=== PATIENT | female | born 1995 | race African-American/Black ===

== ENCOUNTER 2017-08-20 22:33 | Emergency (ER) | payer OTHER ==
[2017-08-20] MEDS ORDERED: Acetaminophen 500 MG TAB ONE (22:58)
[2017-08-20 23:11] LABS: Bilirubin Negative (Negative); Blood, Urine Negative (Negative); Glucose, Urine (Dipstick) Negative (Negative); Ketone, Urine Negative (Negative); Nitrite Negative (Negative); Protein, Urine (Dipstick) Negative (Neg-Trace)
[2017-08-20 23:14] LABS: Bacteria/HPF 1+ HPF (None Seen); Hyaline Casts/LPF 0-3 HYALINE CAST LPF (0-3 Hyaline); RBC/HPF 0-3 HPF (0-3)
[2017-08-21] MEDS ORDERED: Acetaminophen 500 MG TAB ONE (00:10)
== END 2017-08-21 00:32 | disposition home or self-care (01) ==
LOC: ERS 22:33
DX: O99.512 Diseases of the respiratory system complicating pregnancy, second trimester (principal); J11.1 Influenza due to unidentified influenza virus with other respiratory manifestations; O23.42 Unspecified infection of urinary tract in pregnancy, second trimester; O99.332 Smoking (tobacco) complicating pregnancy, second trimester; F17.210 Nicotine dependence, cigarettes, uncomplicated; Z3A.17 17 weeks gestation of pregnancy
CPT/HCPCS: 81003; 81015; 87077; 87081; 87086; 87186; 87430; 99283

== ENCOUNTER 2017-10-04 12:52 | Outpatient (CLI) | payer OTHER ==
--- NOTE | 2017-10-04 14:09 | ULT ---
OB ULTRASOUND: Date: 10/04/17 HISTORY: Size and dates. FINDINGS: A single live intrauterine gestation is seen with measurements corresponding to an estimated gestatio nal age of 23 weeks/3 days and CUAUHTEMOC at 01/28/18. The estimated weight measures 568 gm (1 lb, 4 o z). measurements are as follows: BPD: 5.84 cm, 23 weeks/ days HC: 21.62 cm, 23 weeks/5 days AC: 17.55 cm, 22 weeks/3 days FL: 4.23 cm, 23 weeks/6 days heart rate measures 160 beats/minute. YESSI measures 12.8 cm. Placenta is anteriorly located with out evidence of placenta previa. presentation is breech. A three vessel cord, cord insertion, kidneys, bladder, stomach, four chamber heart, lateral pennie tricle, cerebellum, spine, lips/nose, and upper/lower extremities are visualized. No definite a nomalies are seen. IMPRESSION: Single live intrauterine of 23 weeks/3 days estimated gestational age and CUAUHTEMOC at 01/28/18. POS: [facility]
== END 2017-10-04 12:53 | disposition home or self-care (01) ==
LOC: ULT 12:52
PROVIDERS: ATTEND Family Medicine
DX: Z34.92 Encounter for supervision of normal pregnancy, unspecified, second trimester (principal); Z3A.23 23 weeks gestation of pregnancy
CPT/HCPCS: 76805

== ENCOUNTER 2017-10-25 12:32 | Outpatient (CLI) | payer OTHER ==
--- NOTE | 2017-10-25 15:07 | ULT ---
OB ULTRASOUND: INDICATION: False labor before 37 weeks. FINDINGS: There is a live intrauterine gestation in a vertex lie with cardiac activity documented at 144 b.p.m. Dedicated anatomic survey not performed. The placenta is seen in an anterior location. The amniotic fluid volume is subjectively normal. YESSI is measured at 16.4 cm. On the basis of son ographic imaging, estimated gestational age by ultrasound is 27 weeks 3 days. Estimated date of deli very by ultrasound at 01/21/18. Estimated weight is 1018 grams, placing the fetus at the 95th p ercentile by Hadlock criteria. Demonstrated cervical length is slightly greater than 4 cm. Biparietal diameter measures 6.7 cm, correlating to 27 weeks 0 days. Head circumference 26 cm, correlating to 28 weeks 2 days. Abdominal circumference 22.3 cm, correlating to 26 weeks and 6 days. Femoral length 5 cm, correlating to 27 weeks 0 days. IMPRESSION: 1. Single live intrauterine gestation as detailed above. 2. As clinically indicated, continued imaging followup may be obtained. POS: [facility]
== END 2017-10-25 12:33 | disposition home or self-care (01) ==
LOC: ULT 12:32
PROVIDERS: ATTEND Family Medicine
DX: Z34.02 Encounter for supervision of normal first pregnancy, second trimester (principal); Z3A.27 27 weeks gestation of pregnancy
CPT/HCPCS: 76816

== ENCOUNTER 2017-11-02 05:16 | Day surgery (SDC) | payer OTHER ==
[2017-11-02 05:54] VITALS: BMI 27.6
[2017-11-02 07:16] LABS: FFN Internal QC Analyzer PASS (PASS); FFN Internal QC Cassette PASS (PASS); Fetal Fibronectin POSITIVE (Negative)
[2017-11-02 07:18] LABS: Bilirubin Negative (Negative); Blood, Urine Negative (Negative); Clarity CLOUDY (Clear); Glucose, Urine (Dipstick) Negative (Negative); Leukocyte Moderate (Negative); Nitrite Negative (Negative); Protein, Urine (Dipstick) Negative (Neg-Trace); Specific Gravity, Urine 1.022 (1.002-1.036); Urobilinogen 0.2 mg/dL (0.2-1.0)
[2017-11-02 07:21] LABS: Bacteria/HPF Rare-Few HPF (None Seen); Hyaline Casts/LPF 0-3 HYALINE CAST LPF (0-3 Hyaline); Pathc Cast-AUWi Flag 0.13 (0-2.49)
[2017-11-02 07:39] LABS: RBC/HPF 0-3 HPF (0-3); Renal Epithelial None Seen HPF (0-3); Transitional Epithelial 0-3 HPF (0-3)
[2017-11-02] MEDS ORDERED: Betamet Acet/Betamet Na Ph 30 MG/5 ML VIAL ONE (08:28)
[2017-11-02] MEDS ORDERED: Betamet Acet/Betamet Na Ph 30 MG/5 ML VIAL IM SCH (09:00)
--- NOTE | 2017-11-02 09:05 | PRG ---
DATE OF SERVICE: 11/02/2017 PRIMARY FOOD STYLIST: Dr. Sylvia Bang. CHIEF COMPLAINT: Abdominal pains. HISTORY OF PRESENT ILLNESS: The patient is a 22-year-old female with an intrauterine at 28 weeks and 5 days who is presenting with abdominal pains that have become more severe than what she has been feeling. The patient has a history of three deliveries at 34 and 35 weeks gest [facility], [place]. Her most recent delivery was at 37 weeks gestation. The patient reports that she has been moon ving uterine contractions for the last several weeks and is not new. However, she was woken up this morning by contractions that have made it difficult for her to go back to sleep, so came for evaluati on. The patient has been taking Procardia at home and is on an antibiotic for a UTI. She denies any change in her discharge or vaginal bleeding or urinary urgency or frequency. She denies any recent illness, fever, or fall. She denies intercourse. PAST MEDICAL HISTORY: Negative. PAST SURGICAL HISTORY: Negative. OBSTETRIC HISTORY: She has had deliveries at 35, 34, 34 and 37 weeks gestation. SOCIAL HISTORY: Denies drug, alcohol or tobacco use. ALLERGIES: No known drug allergies. MEDICATIONS: vitamins and she believes she is on Macrobid and then she is on the nifedipine , she reports once daily. OBSTETRIC LABORATORY DATA: Unavailable at this time. REVIEW OF SYSTEMS: The patient reports that she has migraines on occasion. Denies fever, fall, ches t pain, shortness of breath, nausea, vomiting, diarrhea, constipation. She denies any rashes. Repor ts some hip soreness and reports some lower back pain with the contractions. PHYSICAL EXAMINATION: VITAL SIGNS: Blood pressure 124/73, heart rate of 86, respiratory rate of 16, satting 99% on room ai r, temperature is 98.6. GENERAL: She appears to be in no acute distress. She is alert and oriented, cooperative and pleasan t to interact with. HEENT: Head is normocephalic, atraumatic. LUNGS: Clear to auscultation bilaterally. HEART: Regular rate and rhythm. ABDOMEN: Soft. EXTREMITIES: Nontender, nonedematous. GENITOURINARY: She has no lesions on vulva or labia. Her vagina is moist with a green discharge cristina t is more copious than expected. Cervix is bulbous and fragile or friable, but appears to be visuall y closed. GC chlamydia. GBS and LAMP ASSEMBLER-3 were all collected and fibronectin. Cervix is long and fingertip with no presenting part palpable. heart tracing performed for abdominal pains. Baseline is noted to be in the 140s with moderate long-term variability, appropriate for 28-week gestation. She does have contractions on the monitor , appear to be every 3-4 minutes with irritability in between. Patient reports since her stay the on ly one contraction is felt stronger than what her usual baseline is. LABORATORY STUDIES: Urine is noted to be negative for protein, negative for ketones, negative for ni trites, moderate leukocyte esterase with 4-6 white blood cells, and 4-6 squamous cells and rare to fe w bacteria seen. Fibronectin is positive. LAMP ASSEMBLER-3 is pending. GC and chlamydia are pending. GB S is pending. ASSESSMENT AND PLAN: The patient is a 22-year-old female with an intrauterine at 28 weeks and 5 days who has a history of deliveries and is not on progesterone at this time due to ins urance complications and primary project landscape architect is working on trying to remedy that. She is on Procard ia for maternal comfort and is on antibiotic right now for urinary tract infection. Patient does hav e more discharge than expected and were pending a LAMP ASSEMBLER-3, gonorrhea and chlamydia. The LAMP ASSEMBLER-3 should be back later this morning. GC chlamydia should be back in a couple of days. We will need to be follow ed up with her primary OB. The Fibronectin is positive, though not very helpful in directing m anagement at this time. The cervix is long and fingertip and believing that steroids at this point a re not indicated. We will plan on rechecking her cervix in a few hours. Once the LAMP ASSEMBLER-3 is back, anti cipate discharge home with antibiotics as indicated and instructions to follow up in a couple of days with her primary OB, Dr. Sylvia Bang.
[2017-11-02 09:32] LABS: Amphetamine Not Detected (NotDetected); Barbiturates Screen Not Detected (NotDetected); Benzodiazepine Screen Not Detected (NotDetected); Cocaine Metabolite Screen Not Detected (NotDetected); Medtox Control Line Valid? VALID (VALID); Medtox Reader # READER 1; Methadone Not Detected (NotDetected); Methamphetamine Not Detected (NotDetected); Opiate Screen Not Detected (NotDetected); Oxycodone Screen Not Detected (NotDetected); Phencyclidine (PCP) Not Detected (NotDetected); THC/Cannabinoid Screen Not Detected (NotDetected); Tricyclic Screen Not Detected (NotDetected)
--- NOTE | 2017-11-02 11:07 | ULT ---
LIMITED OB ULTRASOUND: Date: 11/02/17 PROVIDED CLINICAL HISTORY: History of pre-term delivery. COMPARISON: 10/25/17. FINDINGS: Single live intrauterine gestation is documented in breech presentation. Placenta is anteriorly locat ed without evidence for previa. Heart rate of 137 beats/minute is documented. Cervical length measure s approximately 3.4 cm. There is no evidence for placenta previa. Amniotic fluid index is approximate ly 10.8. Estimated gestational age based on today's examination is 28 weeks/5 days, which correlates well with the prior examination. Estimated weight is 1367 gm, +/- 202 gm. anatomic survey not performed. Biometry: BPD: 7.03 cm, 28 weeks/2 days HC: 26.18 cm, 28 weeks/3 days FL: 5.59 cm, 29 weeks/3 days AC: 25.32 cm, 29 weeks/4 days IMPRESSION: Single live intrauterine gestation as described above. POS: [facility]
--- NOTE | 2017-11-02 13:37 | PRG ---
DATE OF SERVICE: 11/02/2017 PRESENTING COMPLAINT: Contractions. HISTORY OF PRESENT ILLNESS: Ms. Puga is a 22-year-old 5, para 4, x4 who is well known t o the Labor and Delivery unit. She has a history of delivery in three of her four pregnancie s at 34, 36 and 36 weeks' gestation. She had late enrollment into care with Dr. Sylvia Bang. She is not on Sonja because of prior difficulties with her [employer]. The patient is on da casi nifedipine. She presents complaining of increased contractions, no ruptured membranes, no bleedi ng, no change in vaginal discharge. OBSTETRIC AND GYNECOLOGIC HISTORY: As noted, the patient had a history of pyelonephritis with a preg jacky back in 2014. Blood type A positive, antibody negative, Pap was ASCUS, rubella immune, VDRL no nreactive, hepatitis B, GC chlamydia negative. No HPV is noted. Of note, the patient was instructed to go to Labor and Delivery for steroids with a positive fibronectin back on 10/17; however, s he was noncompliant with this instruction and has not received corticosteroids. The patien t was on Labor and Delivery on 10/25/2017 and had a cervical length of 4 cm. PAST MEDICAL HISTORY: Pyelonephritis. PAST SURGICAL HISTORY: Denies. ALLERGIES: Denies. MEDICATIONS: vitamins. SOCIAL HISTORY: Denies tobacco, alcohol, or drug abuse. FAMILY HISTORY AND REVIEW OF SYSTEMS: Noncontributory. PHYSICAL EXAMINATION: GENERAL: Tall, thin, black female in no acute distress at this time after p.o. hydration. VITAL SIGNS: Temperature 97.5, pulse 82, respirations 18, blood pressure 110/72. HEENT: Within normal limits. LUNGS: Clear to auscultation bilaterally. HEART: Regular rhythm. BREASTS: No masses bilaterally. ABDOMEN: Soft, nontender, no rebound or guarding. FHTs 140s. Fundal height of 28. PELVIC: Vulva without lesions. Vagina without discharge. Cervix closed, long, and high. EXTREMITIES: Without clubbing, cyanosis or edema. fibronectin is positive. Cervical length is approximately 3.5 cm. CUAUHTEMOC is 01/28/2018 placing h er at 28-29 weeks. SUMMARY OF HOSPITAL COURSE: The patient was observed over the course of a couple of hours, no signif icant contractions were noted after a small amount of p.o. hydration. Patient was reassured by this. Cervical length was noted. Considering the patient's previous noncompliance for corticos teroids and her positive fibronectin, decision was made to go ahead and proceed with corticosteroids; however, observational care was not felt to be warranted with her cervical length an d lack of contractions. PLAN: 1. Betamethasone 12 mg IM administered x1 at approximately 08:30 on 11/02/2017. 2. Patient to return to unit on 11/03/2017 at approximately 08:30 for second dose of corti costeroids. 3. The patient is to keep scheduled followup with Dr. Sylvia Bang during the upcoming week. 4. ER precautions.
== END 2017-11-02 09:00 | disposition home health service (06) ==
LOC: L&D/OP 05:16
PROVIDERS: ATTEND Family Medicine
DX: O47.03 False labor before 37 completed weeks of gestation, third trimester (principal); O99.89 Other specified diseases and conditions complicating pregnancy, childbirth and the puerperium; R10.9 Unspecified abdominal pain; O23.43 Unspecified infection of urinary tract in pregnancy, third trimester; O99.355 Diseases of the nervous system complicating the puerperium; G43.909 Migraine, unspecified, not intractable, without status migrainosus; Z79.2 Long term (current) use of antibiotics; Z79.899 Other long term (current) drug therapy; Z87.51 Personal history of pre-term labor; Z3A.28 28 weeks gestation of pregnancy; Z91.14 Patient's other noncompliance with medication regimen
CPT/HCPCS: 76815; 80306; 81001; 82731; 87077; 87081; 87480; 87491; 87510; 87591; 87660; J0702

== ENCOUNTER 2017-11-03 15:52 | Day surgery (SDC) | payer OTHER | END 2017-11-03 16:14 | disposition home or self-care (01) | LOC: L&D/OP 15:52 | PROVIDERS: ATTEND Family Medicine | DX: O28.1 Abnormal biochemical finding on antenatal screening of mother (principal); Z3A.29 29 weeks gestation of pregnancy; Z79.899 Other long term (current) drug therapy; Z91.018 Allergy to other foods ==

== ENCOUNTER 2017-12-09 14:29 | Day surgery (SDC) | payer OTHER ==
[2017-12-09 15:56] VITALS: BMI 27.2
[2017-12-09] MEDS ORDERED: NIFEdipine XL 30 MG TAB PO SCH (16:30)
--- NOTE | 2017-12-09 20:14 | PRG ---
DATE OF SERVICE: 12/09/2017 TIME OF SERVICE: 1930 hours. OB ED NOTE PRESENTING COMPLAINT: Contractions at 35 weeks. HISTORY: The patient is a 22-year-old, 5, para 4 with an CUAUHTEMOC of 01/28/2018 placing her at 34 weeks' gestation who sees Dr. Sylvia Bang. She has a long history of deliveries at 34-36 we eks' gestation. She has been seen in labor and delivery unit about a month ago and had a positive fe jacky fibronectin at that time and received corticosteroids. She reports contractions. Peter es rupture of membranes. She denies leaking fluid. MOLECULAR BIOLOGY SCIENTIST HISTORY: As noted. x4, history of pyelo, blood type A positive. PAST MEDICAL HISTORY: Denies. PAST SURGICAL HISTORY: Denies. ALLERGIES: Denies. MEDICATIONS: vitamins, vaginal progesterone. SOCIAL HISTORY: Denies tobacco, alcohol, IV drug use. FAMILY HISTORY: Noncontributory. REVIEW OF SYSTEMS: Noncontributory. PHYSICAL EXAMINATION: GENERAL: Black female in no acute distress. VITAL SIGNS: Temperature 98.6, respirations 18, blood pressure 118/72. HEENT: Within normal limits. LUNGS: Clear to auscultation bilaterally. HEART: Regular rate and rhythm. ABDOMEN: Soft and nontender. Fundal height 34 cm. FHTs 130s to 140s. PELVIC: Vulva without lesions. Vagina without discharge. Cervix is 1, long and high by RN exam rep eated at the end of the visit. heart rate tracing, category 1. No decelerations. Uterine irr itability to contractions every 3 to 5 upon presentation, every 10 to 15 upon discharge. SUMMARY OF HOSPITAL COURSE: The patient received IV hydration and Procardia per protocol. With this , her contractions essentially became nonexistent to every 15 minutes. She felt much better and repo rted that contractions have decreased intensity. Considering the patient has had previous corticosteroids, decision was made not to repeat these. She was discharged home to continue on modif ied home rest with p.o. hydration, ER precautions, and to follow up with Dr. Sylvia Bang this week.
== END 2017-12-09 19:30 | disposition home or self-care (01) ==
LOC: L&D/OP 14:29
PROVIDERS: ATTEND Family Medicine
DX: O47.03 False labor before 37 completed weeks of gestation, third trimester (principal); Z3A.34 34 weeks gestation of pregnancy; Z91.018 Allergy to other foods; Z79.899 Other long term (current) drug therapy; Z79.890 Hormone replacement therapy; Z87.448 Personal history of other diseases of urinary system
CPT/HCPCS: 87077; 87081; 99283

== ENCOUNTER 2017-12-13 22:45 | Day surgery (SDC) | payer OTHER ==
[2017-12-13 23:12] VITALS: BP 117/79; TEMP 99.8; BMI 27.1
--- NOTE | 2017-12-13 23:36 | PDOC.LDHP ---
Labor and Delivery H&P Chief complaint: other (vag dsch) HPI: Patient of Dr Sylvia Bang CC: possible contractions and vag discharge HPI: 22 yo with HX PTL in past, now at 34 weeks 4 days with possible contractions. She was on progesterone cream previously. She has recieved steroids previously. Also with white vag dsch. No large gusg of fluid, no trauma , no recent coitus. No fevers at home. No sxs.Good FM Review of systems: negative per HPI Current gestational age (weeks): 34 (4 days) Due date: 01/28/18 Dating criteria: last menstrual period Grav: 5 Para: 4 OB History Details: HX PTL, no CS history Current complications: other (was on progesterone cream) Abnormal US findings: No Current medications: none Previous surgical history: other (T&A) Allergies/Adverse Reactions: Allergies Allergy/AdvReac Type Severity Reaction Status Date / Time MUSTARD Allergy Mild Hives Uncoded 11/02/17 05:48 - Physical Exam Vital signs reviewed and normal: yes (117/79 Tmax 99.8 Pulse 120s) Abnormal vital signs: Pulse 120 General: NAD Heart: RRR Lungs: CTAB Abdomen: gravid Extremeties: no edema FHT: category 1, variability present [place] contractions every: irritability - Assessment Threatened Labor - Plan Plan: observation in L&D (we will: 1. order CMP 2. Get 1 liter LR bolus for initial tachy (maybe slightly dehydratred). 3. Follow temps and pulse 4. Order VP3 5. Check amnisure for c/o discharge 6. CX cervix after amnisure 7. Admit if ROM or evidence of labor 8. Notify A Charlie if admitted 9. Monitor and obs for now)
[2017-12-13] MEDS ORDERED: Lactated Ringer's 1,000 ML IV SCH (23:45)
[2017-12-14 00:09] LABS: Amnisure Internal Control QC ACCEPTABLE (ACCEPTABLE); Amnisure Test No Membranes Rupture (No Rupture)
--- NOTE | 2017-12-14 00:12 | PDOC.EVN ---
Event Note - Event Note Event Note: Amnisure negative
[2017-12-14] MEDS ORDERED: Promethazine HCl 25 MG/ML VIAL IM/IV PRN (00:16)
--- NOTE | 2017-12-14 00:18 | PDOC.EVN ---
Event Note - Event Note Event Note: Cx was 1-2/50/-3/ no VB
--- NOTE | 2017-12-14 00:24 | PDOC.EVN ---
Event Note - Event Note Event Note: VP3 will not return tonight. Will run in the AM. I gave the patient instructions to have it followed up on Saturday with Dr Guerra as no acute need at this time. Still awaiting CMP. Patient looks well clinically. Resting comfortably and in NAD. Physical benign.
[2017-12-14 00:59] LABS: ALT (SGPT) Less than 7 U/L (8-55); AST (SGOT) 16 U/L (5-34); Albumin 3.9 g/dL (3.5-5.0); Alkaline Phosphatase 179 U/L (40-150); Anion Gap 14 mmol/L (10-20); BUN (Urea Nitrogen) 13 mg/dL (7.0-18.7); Bilirubin, Total 0.3 mg/dL (0.2-1.2); Calc. Creatinine Clearance 163 mL/min (70-130); Calcium 9.4 mg/dL (7.8-10.44); Carbon Dioxide 22 mmol/L (22-29); Chloride 104 mmol/L (98-107); Estimated GFR-MDRD Greater than 90; Globulin 3.3 g/dL (2.4-3.5); Glucose 71 mg/dL (70-105); Protein, Total 7.2 g/dL (6.0-8.3); Sodium 136 mmol/L (136-145)
--- NOTE | 2017-12-14 01:01 | PDOC.EVN ---
Event Note - Event Note Event Note: CMP ok. Follow up VP3 saturday with
== END 2017-12-14 01:05 | disposition home or self-care (01) ==
LOC: L&D/OP 22:45
PROVIDERS: ATTEND Family Medicine
DX: O47.03 False labor before 37 completed weeks of gestation, third trimester (principal); O99.89 Other specified diseases and conditions complicating pregnancy, childbirth and the puerperium; N89.8 Other specified noninflammatory disorders of vagina; Z3A.34 34 weeks gestation of pregnancy; Z79.899 Other long term (current) drug therapy; Z91.018 Allergy to other foods
CPT/HCPCS: 80053; 84112; 87480; 87510; 87660; J2550

== ENCOUNTER 2017-12-19 08:00 | Outpatient (CLI) | payer OTHER | END 2017-12-19 08:01 | disposition home or self-care (01) | LOC: BICULT 08:00 | PROVIDERS: ATTEND Family Medicine | DX: Z34.03 Encounter for supervision of normal first pregnancy, third trimester (principal); Z3A.34 34 weeks gestation of pregnancy | CPT/HCPCS: 76805 ==

== ENCOUNTER 2017-12-22 17:31 | Inpatient (IN) | payer OTHER ==
[2017-12-22 18:14] VITALS: BMI 27.9
[2017-12-22] MEDS ORDERED: Ibuprofen 800 MG TAB PO PRN (18:31)
[2017-12-22] MEDS ORDERED: Lidocaine 1% (PF) 30 ML VIAL SC PRN (18:31)
[2017-12-22] MEDS ORDERED: Promethazine HCl 25 MG/ML VIAL IM PRN ×2 (18:31→20:17)
[2017-12-22] MEDS ORDERED: HYDROcodone/Acetaminophen 5/325 mg Tablet PO PRN ×2 (18:31)
--- NOTE | 2017-12-22 18:35 | PDOC.LDHP ---
Labor and Delivery H&P HPI: Patient of Dr Sylvia Back, here at 34 weeks and 5 days, with a past HX of PTBs, now with contractions. She is a 22 yo , s/p steroids this . GBS pos. I have notified Dr Sylvia back at 1730..awaiting confirmation. Review of Systems: complete ROS performed and as per HPI Current gestational age (weeks): 34 (5 days) Dating criteria: last menstrual period Grav: 5 Para: 4 Current complications: other ( labor. S/P steroids) Current medications: none Allergies/Adverse Reactions: Allergies Allergy/AdvReac Type Severity Reaction Status Date / Time MUSTARD Allergy Mild Hives Uncoded 11/02/17 05:48 - Physical Exam Vital signs reviewed and normal: yes General: NAD Heart: RRR Lungs: CTAB Abdomen: gravid (S=D) FHT: category 1 Foss contractions every: Every 5-6 minuts - Vaginal Exam cm dilated: 5 Effacement: 75% Station: 0 - Assessment L&D Assessment: labor - Plan Plan: admit to L&D, GBS antibiotic prophylaxis, informed consent obtained, anesthesia consult for pain management, other (Dr Back has been notified...awaiting confirmation.)
[2017-12-22] MEDS ORDERED: Penicillin G Potassium 5 MILL.UNITS in Sodium Chloride 0.9% 100 ML IVPB SCH (18:45)
[2017-12-22] MEDS: Lactated Ringer's 1,000 ML IV SCH (19:00)
--- NOTE | 2017-12-22 19:06 | PDOC.EVN ---
Event Note - Event Note Event Note: ADDENDUM: Dr Guerra aware of patient status. Chart review finds steroids given at 27 weeks 4 days. As they were under 28 weeks, I have ordered an additional 12mg dose now.
[2017-12-22] MEDS ORDERED: Betamet Acet/Betamet Na Ph 30 MG/5 ML VIAL IM SCH (19:15)
[2017-12-22 19:19] LABS: Hemoglobin 8.9 g/dL (12.0-16.0); Mean Corpuscular HGB CONC 32.1 g/dL (32.0-36.0); Mean Corpuscular Hemoglobin 22.7 pg (27.0-31.0); Mean Corpuscular Volume 70.6 fl (81.0-99.0); Mean Platelet Volume 9.3 fL (7.4-10.4); Platelet Count 351 thou/uL (130-400); RBC Distribution Width 22.1 % (11.5-14.5); Red Blood Cell (RBC) Count 3.94 mill/uL (4.20-5.40)
[2017-12-22] MEDS ORDERED: DISCONTINUE ALL PREVIOUS NARCOTICS FS SCH (19:30)
[2017-12-22] MEDS ORDERED: Bupivacaine 0.5% 20 ML, fentaNYL Citrate/PF 400 MCG in Sodium Chloride 0.9% 72 ML EPIDURAL SCH (19:30)
[2017-12-22 19:58] LABS: HBSAg Index 0.25 S/CO (0-0.99); HIV (1/2) Antibody/Antigen Non-Reactive (NonReactive); HIV 1/2 INDEX 0.13 S/CO (<1.00); Hep B Surf Ag Non-Reactive S/CO (NonReactive); Syphilis Antibody Nonreactive (Nonreactive); Syphilis Antibody Index 0.05 S/CO (<1.00 Non-Reactive)
[2017-12-22] MEDS ORDERED: ePHEDrine/0.9% NaCl/PF SYRINGE 50 mg/10 ml SLOW IVP PRN (20:17)
[2017-12-22] MEDS ORDERED: Acetaminophen 325 MG TAB PO PRN (20:17)
[2017-12-22] MEDS ORDERED: Naloxone HCl 0.4 mg/ml Vial IVP PRN ×2 (20:17)
[2017-12-22] MEDS ORDERED: Lactated Ringer's 500 ML IV PRN (20:17)
[2017-12-22] MEDS ORDERED: Eucerin (Mineral Oil/Petrolatum,White) 30 gm Jar TOP PRN (20:17)
[2017-12-22] MEDS ORDERED: diphenhydrAMINE 50 MG/ML VIAL IVP PRN (20:17)
[2017-12-22] MEDS ORDERED: Ondansetron PF 4 MG/2 ML Vial IVP PRN (20:17)
[2017-12-22] MEDS ORDERED: Fentanyl 4mcg/Marcaine 0.1% Cassette 100 ML EPIDURAL SCH (20:30)
[2017-12-22] MEDS ORDERED: Communication Order-Pharmacy FS SCH (20:30)
[2017-12-22] MEDS: Penicillin G 2.5 MILL.units 2.5 MILL.UNITS in Premix Bag 1 BAG IVPB SCH (22:54)
[2017-12-22] MEDS ORDERED: ePHEDrine/0.9% NaCl/PF SYRINGE 50 mg/10 ml ONE (23:00)
[2017-12-22] MEDS ORDERED: Hydrocerin (Eucerin) Cream 120 gm Jar TOP PRN (23:03)
[2017-12-23] MEDS ORDERED: LR 500 ML/Oxytocin 10 units 500 ML ONE (00:56)
[2017-12-23] MEDS: Lactated Ringer's 1,000 ML IV SCH (01:00)
[2017-12-23] MEDS: LR / Pitocin 40 units/1000 ml 1,000 ML IV PRN ×2 (01:40→02:57)
[2017-12-23] MEDS: Penicillin G 2.5 MILL.units 2.5 MILL.UNITS in Premix Bag 1 BAG IVPB SCH (02:46)
[2017-12-23] MEDS ORDERED: Benzocaine/Menthol 20-0.5% 60 ML CAN TOP PRN (04:07)
[2017-12-23] MEDS ORDERED: diphenhydrAMINE 25 MG CAP PO PRN (04:07)
[2017-12-23] MEDS ORDERED: LR / Pitocin 40 units/1000 ml 1,000 ML IV SCH (04:07)
[2017-12-23] MEDS ORDERED: HYDROcodone/Acetaminophen 5/325 mg Tablet PO PRN (04:07)
[2017-12-23] MEDS ORDERED: Milk Of Magnesia 30 ML UDCUP PO PRN (04:07)
[2017-12-23] MEDS ORDERED: Bisacodyl 10 MG SUPP PR PRN (04:07)
[2017-12-23] MEDS ORDERED: Lanolin Ointment 7 GM TUBE TOP PRN (04:07)
[2017-12-23] MEDS ORDERED: Ondansetron PF 4 MG/2 ML Vial IVP PRN (04:07)
[2017-12-23] MEDS ORDERED: Preparation H Ointment 28 GM TUBE PR PRN (04:07)
[2017-12-23] MEDS: Ibuprofen 800 MG TAB PO SCH ×3 (04:43→22:23)
[2017-12-23] MEDS: Acetaminophen/Codeine 30-300mg Tablet PO PRN ×2 (08:52→18:48)
[2017-12-23] MEDS: Ferrous Sulfate 325 MG TAB PO SCH ×2 (08:52→17:18)
[2017-12-23] MEDS: Prenatal Vitamin 1 TAB PO SCH (08:52)
[2017-12-23] MEDS: Docusate Calcium (SURFAK) 240 MG CAP PO SCH ×2 (08:52→22:23)
[2017-12-24] MEDS: Acetaminophen/Codeine 30-300mg Tablet PO PRN ×2 (00:21→11:05)
[2017-12-24] MEDS: Ibuprofen 800 MG TAB PO SCH ×3 (05:42→21:41)
[2017-12-24 07:55] LABS: Hemoglobin 7.5 g/dL (12.0-16.0); Mean Corpuscular HGB CONC 30.8 g/dL (32.0-36.0); Mean Corpuscular Hemoglobin 21.9 pg (27.0-31.0); Mean Corpuscular Volume 71.1 fl (81.0-99.0); Mean Platelet Volume 8.9 fL (7.4-10.4); Platelet Count 323 thou/uL (130-400); RBC Distribution Width 21.9 % (11.5-14.5); Red Blood Cell (RBC) Count 3.41 mill/uL (4.20-5.40)
[2017-12-24] MEDS: Prenatal Vitamin 1 TAB PO SCH (11:05)
[2017-12-24] MEDS: Ferrous Sulfate 325 MG TAB PO SCH ×2 (11:05→17:22)
[2017-12-24] MEDS: Docusate Calcium (SURFAK) 240 MG CAP PO SCH ×2 (11:05→21:41)
[2017-12-24 21:59] VITALS: TEMP 99.1
[2017-12-25] MEDS: Acetaminophen/Codeine 30-300mg Tablet PO PRN (00:43)
[2017-12-25] MEDS: Ibuprofen 800 MG TAB PO SCH (05:37)
[2017-12-25 08:12] VITALS: BP 124/68
[2017-12-25] MEDS: Prenatal Vitamin 1 TAB PO SCH (09:33)
[2017-12-25] MEDS: Docusate Calcium (SURFAK) 240 MG CAP PO SCH (09:33)
[2017-12-25] MEDS: Ferrous Sulfate 325 MG TAB PO SCH (09:33)
== END 2017-12-25 10:50 | disposition home or self-care (01) | DRG 775 ==
LOC: L&D/OP 17:31 → L&D 19:11 → 3SW 12-23 04:29
PROVIDERS: ADMIT Obstetrics & Gynecology; ATTEND Family Medicine
PROC: 10E0XZZ Delivery of Products of Conception, External Approach (ICD-10-PCS; principal; 2017-12-23)
PROC: 10907ZC Drainage of Amniotic Fluid, Therapeutic from Products of Conception, Via Natural or Artificial Opening (ICD-10-PCS; 2017-12-23)
DX: O60.14X0 Preterm labor third trimester with preterm delivery third trimester, not applicable or unspecified (principal); D50.9 Iron deficiency anemia, unspecified; O99.02 Anemia complicating childbirth; Z37.0 Single live birth; O99.824 Streptococcus B carrier state complicating childbirth; Z3A.34 34 weeks gestation of pregnancy
CPT/HCPCS: 36415; 51702; 85027; 86780; 87340; 87389; 99285; J0702; J1200; J2001; J2310; J2540; J3010; J3490; J7050; J7120

== ENCOUNTER 2018-07-10 08:00 | Emergency (ER) | payer OTHER ==
[2018-07-10] MEDS ORDERED: Lidocaine Viscous Sol 2% 15 ml UD Cup ONE (08:34)
[2018-07-10] MEDS ORDERED: Pantoprazole 40 MG VIAL ONE (08:34)
[2018-07-10] MEDS ORDERED: Mag-Al 1200 mg/1200 mg/30 ML UDCUP ONE (08:34)
[2018-07-10 08:50] LABS: #Eosinphils 0.3 thou/uL (0.0-0.7); #Lymphocytes 3.2 thou/uL (1.20-3.40); #Monocytes 0.5 thou/uL (0.11-0.59); #Neutrophils 5.2 thou/uL (1.40-6.50); %Basophils 0.3 % (0.0-1.0); %Eosinophils 3.7 % (0.0-10.0); %Lymphocytes 34.4 % (21.0-51.0); %Monocytes 5.7 % (0.0-10.0); %Neutrophils 55.9 % (42.0-75.0); Hemoglobin 10.5 g/dL (12.0-16.0); Mean Corpuscular HGB CONC 29.2 g/dL (32.0-36.0); Mean Corpuscular Hemoglobin 20.9 pg (27.0-31.0); Mean Corpuscular Volume 71.5 fL (78.0-98.0); Mean Platelet Volume 8.6 fL (7.4-10.4); Platelet Count 480 thou/uL (130-400); RBC Distribution Width 18.8 % (11.5-14.5); Red Blood Cell (RBC) Count 5.01 mill/uL (4.20-5.40); White Blood Cell (WBC) Count 9.2 thou/uL (4.8-10.8)
[2018-07-10 08:57] LABS: ALT (SGPT) 9 U/L (8-55); AST (SGOT) 25 U/L (5-34); Albumin 4.4 g/dL (3.5-5.0); Alkaline Phosphatase 63 U/L (40-150); Anion Gap 10 mmol/L (10-20); BUN (Urea Nitrogen) 17 mg/dL (7.0-18.7); Bilirubin, Total 0.3 mg/dL (0.2-1.2); Calc. Creatinine Clearance 0 mL/min (70-130); Calcium 9.5 mg/dL (7.8-10.44); Carbon Dioxide 21 mmol/L (22-29); Chloride 108 mmol/L (98-107); Estimated GFR-MDRD Greater than 90; Glucose 90 mg/dL (70-105); Lipase 42 U/L (8-78); Potassium 4.3 mmol/L (3.5-5.1); Protein, Total 8.4 g/dL (6.0-8.3); Sodium 135 mmol/L (136-145)
[2018-07-10 09:16] LABS: Hypochromia MODERATE=16-30 cells (100X) (0-5/hpf); MDiff Complete? YES; Microcytosis MODERATE=15-30 cells (100X) (0-5/hpf); Ovalocytes SLIGHT = 2-5 cells (100X) (0-1/hpf); PLT Morphology Comment Appears Increased; Polychromasia SLIGHT = 2-3 cells (100X) (0-2/hpf); Reflex for Review?? NO
[2018-07-10 09:25] LABS: Bilirubin Negative (Negative); Blood, Urine Negative (Negative); Clarity CLEAR (Clear); Glucose, Urine (Dipstick) Negative (Negative); Leukocyte Small (Negative); Nitrite Negative (Negative); Protein, Urine (Dipstick) Negative (Neg-Trace); Specific Gravity, Urine 1.024 (1.002-1.036); Urobilinogen 0.2 mg/dL (0.2-1.0)
[2018-07-10 09:28] LABS: Bacteria/HPF None Seen HPF (None Seen); Hyaline Casts/LPF 0-3 HYALINE CAST LPF (0-3 Hyaline); Pathc Cast-AUWi Flag 0.87 (0-2.49); RBC/HPF 0-3 HPF (0-3); WBC/HPF 0-3 HPF (0-3)
[2018-07-10 09:30] LABS: Pregnancy Test - Urine (BHCG) Negative (Negative); Pregu Control Background? CLEAR/WHITE (CLR/WHITE); Pregu Control Bar Appear? YES (CONTROL BAR); Specific Gravity 1.024 (1.002-1.036)
== END 2018-07-10 09:47 | disposition home or self-care (01) ==
LOC: ERS 08:00
DX: K21.0 Gastro-esophageal reflux disease with esophagitis (principal); F17.210 Nicotine dependence, cigarettes, uncomplicated
CPT/HCPCS: 80053; 81003; 81015; 81025; 83690; 85025; 96361; 96374; C9113

== ENCOUNTER 2018-09-21 23:05 | Emergency (ER) | payer OTHER, SELFPAY ==
[2018-09-21 23:35] LABS: Bilirubin Negative (Negative); Blood, Urine Moderate (Negative); Clarity CLEAR (Clear); Glucose, Urine (Dipstick) Negative (Negative); Leukocyte Trace (Negative); Nitrite Negative (Negative); Pregnancy Test - Urine (BHCG) Negative (Negative); Pregu Control Background? CLEAR/WHITE (CLR/WHITE); Pregu Control Bar Appear? YES (CONTROL BAR); Protein, Urine (Dipstick) Negative (Neg-Trace); Specific Gravity 1.015 (1.002-1.036); Specific Gravity, Urine 1.015 (1.002-1.036)
[2018-09-21 23:38] LABS: Bacteria/HPF None Seen HPF (None Seen); Hyaline Casts/LPF 4-6 HYALINE CAST LPF (0-3 Hyaline); Pathc Cast-AUWi Flag 0.58 (0-2.49); RBC/HPF 0-3 HPF (0-3)
== END 2018-09-22 00:18 | disposition home or self-care (01) ==
LOC: ERS 23:05
DX: N39.0 Urinary tract infection, site not specified (principal); F17.210 Nicotine dependence, cigarettes, uncomplicated
CPT/HCPCS: 81003; 81015; 81025; 87086; 99283

== ENCOUNTER 2018-09-25 17:02 | Emergency (ER) | payer SELFPAY ==
--- NOTE | 2018-09-25 19:05 | RAD ---
RADIOGRAPH CHEST AND RIGHT RIBS 3 VIEWS: HISTORY: 23-year-old female with acute traumatic right rib pain due to fall. FINDINGS: The visualized lung brown are clear. The cardiomediastinal silhouette and hilar shadows are normal. The lateral costophrenic angles are sharp. The osseous structures appear normal. There is no pneu mothorax. IMPRESSION: Negative. erika harvey POS: [facility]
== END 2018-09-25 19:24 | disposition home or self-care (01) ==
LOC: ERS 17:02
DX: S20.211A Contusion of right front wall of thorax, initial encounter (principal); F17.210 Nicotine dependence, cigarettes, uncomplicated; I10 Essential (primary) hypertension; W01.0XXA Fall on same level from slipping, tripping and stumbling without subsequent striking against object, initial encounter

== ENCOUNTER 2019-06-01 16:28 | Emergency (ER) | payer SELFPAY ==
[2019-06-01] MEDS ORDERED: Ketorolac Tromethamine 30 MG/ML VIAL ONE (17:32)
== END 2019-06-01 18:09 | disposition home or self-care (01) ==
LOC: ERS 16:28
DX: K03.81 Cracked tooth (principal); I10 Essential (primary) hypertension; F17.210 Nicotine dependence, cigarettes, uncomplicated
CPT/HCPCS: 96372; 99282; J1885

== ENCOUNTER 2019-08-31 13:40 | Emergency (ER) | payer SELFPAY ==
--- NOTE | 2019-08-31 14:32 | RAD ---
PA AND LATERAL VIEWS CHEST: Date: 08/31/2019 HISTORY: Cough. FINDINGS: The cardiomediastinum is normal. The lungs are expanded and clear. The bony thorax is normal. IMPRESSION: Normal exam. POS: [facility]
[2019-08-31] MEDS ORDERED: Dexamethasone 4 mg/ml Vial ONE (15:20)
== END 2019-08-31 15:28 | disposition home or self-care (01) ==
LOC: ERS 13:40
DX: J18.9 Pneumonia, unspecified organism (principal); I10 Essential (primary) hypertension; F17.210 Nicotine dependence, cigarettes, uncomplicated
CPT/HCPCS: 71046; 99283; J1100

== ENCOUNTER 2020-02-05 11:26 | Emergency (ER) | payer OTHER, SELFPAY ==
[2020-02-06 12:17] LABS: SARS-CoV-2 MS2 Positive; SARS-CoV-2 N Gene Negative; SARS-CoV-2 S Gene Negative; SARS-CoV-2 orf1ab Negative
== END 2020-02-05 12:25 | disposition home or self-care (01) ==
LOC: ERS 11:26
DX: R50.9 Fever, unspecified (principal); R19.7 Diarrhea, unspecified; Z20.828 Contact with and (suspected) exposure to other viral communicable diseases; I10 Essential (primary) hypertension; F17.210 Nicotine dependence, cigarettes, uncomplicated
CPT/HCPCS: 87635; 99283; U0003

== ENCOUNTER 2021-10-01 15:34 | Emergency (ER) | payer MEDICAID, SELFPAY ==
[2021-10-01 16:30] LABS: #Basophils 0.1 thou/uL (0.0-0.2); #Eosinphils 0.3 thou/uL (0.0-0.7); #Lymphocytes 2.9 thou/uL (1.20-3.40); #Monocytes 0.6 thou/uL (0.11-0.59); #Neutrophils 4.4 thou/uL (1.40-6.50); %Eosinophils 3.8 % (0.0-10.0); %Lymphocytes 35.1 % (21.0-51.0); %Monocytes 6.8 % (0.0-10.0); %Neutrophils 53.2 % (42.0-75.0); Hemoglobin 11.2 g/dL (12.0-16.0); Mean Corpuscular HGB CONC 31.8 g/dL (32.0-36.0); Mean Corpuscular Hemoglobin 25.7 pg (27.0-31.0); Mean Corpuscular Volume 80.6 fL (78.0-98.0); Mean Platelet Volume 6.9 fL (7.4-10.4); Platelet Count 367 thou/uL (130-400); RBC Distribution Width 17.1 % (11.5-14.5); Red Blood Cell (RBC) Count 4.35 mill/uL (4.20-5.40); White Blood Cell (WBC) Count 8.3 thou/uL (4.8-10.8)
[2021-10-01 16:53] LABS: ALT (SGPT) 11 U/L (8-55); AST (SGOT) 18 U/L (5-34); Albumin 4.1 g/dL (3.5-5.0); Alkaline Phosphatase 52 U/L (40-110); Anion Gap 12 mmol/L (10-20); BUN (Urea Nitrogen) 9 mg/dL (7.0-18.7); Bilirubin, Total 0.2 mg/dL (0.2-1.2); Calc. Creatinine Clearance 0 mL/min (70-130); Carbon Dioxide 22 mmol/L (22-29); Chloride 105 mmol/L (98-107); Globulin 3.2 g/dL (2.4-3.5); Glucose 77 mg/dL (70-105); Potassium 3.7 mmol/L (3.5-5.1); Protein, Total 7.3 g/dL (6.0-8.3); Sodium 135 mmol/L (136-145)
[2021-10-01 17:35] LABS: Bacteria/HPF None Seen HPF (None Seen); Bilirubin Negative (Negative); Blood, Urine 2+ (Negative); Clarity Clear (Clear); Glucose, Urine (Dipstick) Normal (Negative); Ketone, Urine Negative (Negative); Leukocyte 75 Leu/uL (Negative); Nitrite Negative (Negative); Protein, Urine (Dipstick) 20 mg/dL (Neg-Trace); RBC/HPF 0-3 HPF (0-3); Specific Gravity, Urine 1.029 (1.002-1.036); Squamous Epithelial 0-3 HPF (0-3); Urobilinogen Normal mg/dL (Less than 2)
== END 2021-10-01 18:14 | disposition home or self-care (01) ==
LOC: ERS 15:34
DX: O20.0 Threatened abortion (principal); I10 Essential (primary) hypertension; F17.210 Nicotine dependence, cigarettes, uncomplicated; Z3A.09 9 weeks gestation of pregnancy; Z87.19 Personal history of other diseases of the digestive system
CPT/HCPCS: 36415; 76856; 80053; 81003; 81015; 84702; 85025; 86850; 86900; 86901

== ENCOUNTER 2021-12-27 07:34 | Emergency (ER) | payer OTHER ==
[2021-12-27 08:42] LABS: Bacteria/HPF 2+ HPF (None Seen); Bilirubin Negative (Negative); Blood, Urine Trace (Negative); Clarity Turbid (Clear); Glucose, Urine (Dipstick) Normal (Negative); Ketone, Urine Negative (Negative); Leukocyte 500 Leu/uL (Negative); Nitrite Negative (Negative); Protein, Urine (Dipstick) 50 mg/dL (Neg-Trace); RBC/HPF 0-3 HPF (0-3); Specific Gravity, Urine 1.031 (1.002-1.036); Squamous Epithelial 21-50 HPF (0-3); Urobilinogen Normal mg/dL (Less than 2); pH, Urine 6.5 (5.0-9.0)
[2021-12-27 08:49] LABS: #Eosinphils 0.2 thou/uL (0.0-0.7); #Monocytes 0.5 thou/uL (0.11-0.59); #Neutrophils 4.8 thou/uL (1.40-6.50); %Basophils 0.2 % (0.0-1.0); %Eosinophils 2.5 % (0.0-10.0); %Lymphocytes 26.1 % (21.0-51.0); %Monocytes 6.5 % (0.0-10.0); %Neutrophils 64.7 % (42.0-75.0); Hemoglobin 10.7 g/dL (12.0-16.0); Mean Corpuscular HGB CONC 32.6 g/dL (32.0-36.0); Mean Corpuscular Hemoglobin 28.2 pg (27.0-31.0); Mean Corpuscular Volume 86.5 fL (78.0-98.0); Mean Platelet Volume 6.4 fL (7.4-10.4); Platelet Count 360 thou/uL (130-400); RBC Distribution Width 15.3 % (11.5-14.5); Red Blood Cell (RBC) Count 3.77 mill/uL (4.20-5.40); White Blood Cell (WBC) Count 7.4 thou/uL (4.8-10.8)
[2021-12-27 09:08] LABS: ALT (SGPT) 7 U/L (8-55); AST (SGOT) 16 U/L (5-34); Albumin 3.8 g/dL (3.5-5.0); Alkaline Phosphatase 45 U/L (40-110); Anion Gap 9 mmol/L (10-20); BUN (Urea Nitrogen) 9 mg/dL (7.0-18.7); Bilirubin, Total 0.2 mg/dL (0.2-1.2); Calc. Creatinine Clearance 0 mL/min (70-130); Carbon Dioxide 21 mmol/L (22-29); Chloride 105 mmol/L (98-107); Globulin 3.1 g/dL (2.4-3.5); Glucose 72 mg/dL (70-105); Lipase 28 U/L (8-78); Potassium 3.5 mmol/L (3.5-5.1); Protein, Total 6.9 g/dL (6.0-8.3); Sodium 131 mmol/L (136-145)
== END 2021-12-27 09:50 | disposition home or self-care (01) ==
LOC: ERS 07:34
DX: O23.42 Unspecified infection of urinary tract in pregnancy, second trimester (principal); O99.332 Smoking (tobacco) complicating pregnancy, second trimester; F17.210 Nicotine dependence, cigarettes, uncomplicated; Z3A.20 20 weeks gestation of pregnancy
CPT/HCPCS: 80053; 81003; 81015; 83690; 85025; 87086

== ENCOUNTER 2022-07-16 20:47 | Emergency (ER) | payer OTHER ==
[2022-07-16 23:11] LABS: SARS-CoV-2 NAA Rapid Test Not Detected (NotDetected)
== END 2022-07-16 22:21 | disposition home or self-care (01) ==
LOC: ERS 20:47
DX: B34.9 Viral infection, unspecified (principal); I10 Essential (primary) hypertension; F17.210 Nicotine dependence, cigarettes, uncomplicated; Z20.822 Contact with and (suspected) exposure to COVID-19
CPT/HCPCS: 87081; 87430; 99283

== ENCOUNTER 2022-11-21 12:17 | Emergency (ER) | payer OTHER ==
[~2022-11-21 12:17] MED LIST: Iopamidol-370 76% 500 ML MDV (1 ML CHARGE) ONE
[2022-11-21 12:39] LABS: #Basophils 0.1 thou/uL (0.0-0.2); #Eosinphils 0.3 thou/uL (0.0-0.7); #Lymphocytes 2.6 thou/uL (1.20-3.40); #Monocytes 0.4 thou/uL (0.11-0.59); #Neutrophils 5.3 thou/uL (1.40-6.50); %Basophils 0.6 % (0.0-1.0); %Lymphocytes 30.3 % (21.0-51.0); %Neutrophils 61.2 % (42.0-75.0); Hemoglobin 13.6 g/dL (12.0-16.0); Mean Corpuscular HGB CONC 31.7 g/dL (32.0-36.0); Mean Corpuscular Hemoglobin 28.1 pg (27.0-31.0); Mean Corpuscular Volume 88.8 fl (78.0-98.0); Mean Platelet Volume 6.7 fL (7.4-10.4); Platelet Count 369 10x3/uL (130-400); RBC Distribution Width 15.2 % (11.5-14.5); Red Blood Cell (RBC) Count 4.84 mill/uL (4.20-5.40); White Blood Cell (WBC) Count 8.6 10x3/uL (4.8-10.8)
[2022-11-21 13:08] LABS: ALT (SGPT) 10 U/L (8-55); AST (SGOT) 18 U/L (5-34); Albumin 4.4 g/dL (3.5-5.0); Alkaline Phosphatase 55 U/L (40-110); Anion Gap 13 mmol/L (10-20); BUN (Urea Nitrogen) 17 mg/dL (7.0-18.7); Bilirubin, Total 0.2 mg/dL (0.2-1.2); Calc. Creatinine Clearance 0 mL/min (70-130); Carbon Dioxide 23 mmol/L (22-29); Chloride 107 mmol/L (98-107); Estimated GFR 80; Globulin 3.8 g/dL (2.4-3.5); Glucose 87 mg/dL (70-105); Lipase 36 U/L (8-78); Potassium 4.5 mmol/L (3.5-5.1); Protein, Total 8.2 g/dL (6.0-8.3); Sodium 138 mmol/L (136-145)
[2022-11-21 14:26] LABS: Bilirubin Negative (Negative); Blood, Urine 1+ (Negative); Glucose, Urine (Dipstick) Normal (Negative); Ketone, Urine Negative (Negative); Leukocyte 500 Leu/uL (Negative); Nitrite Negative (Negative); Protein, Urine (Dipstick) 20 mg/dL (Neg-Trace); RBC/HPF 0-3 HPF (0-3); Specific Gravity, Urine 1.033 (1.002-1.036); Urobilinogen Normal mg/dL (Less than 2)
[2022-11-21 14:27] LABS: Bacteria/HPF Rare-Few HPF (None Seen); Clarity Cloudy (Clear)
[2022-11-21 14:29] LABS: Pregnancy Test - Urine (BHCG) Negative (Negative); Pregu Control Background? CLEAR/WHITE (CLR/WHITE); Pregu Control Bar Appear? YES (CONTROL BAR); Specific Gravity 1.033 (1.002-1.036)
[2022-11-21] MEDS ORDERED: Mag-Al 1200 mg/1200 mg/30 ML UDCUP ONE (15:21)
== END 2022-11-21 17:12 | disposition home or self-care (01) ==
LOC: ERS 12:17
DX: R10.13 Epigastric pain (principal); I10 Essential (primary) hypertension; F17.210 Nicotine dependence, cigarettes, uncomplicated
CPT/HCPCS: 36415; 74177; 80053; 81003; 81015; 81025; 83690; 85025; Q9967

== ENCOUNTER 2022-12-29 11:43 | Emergency (ER) | payer OTHER | END 2022-12-29 13:46 | disposition home or self-care (01) | LOC: ERS 11:43 | DX: R07.81 Pleurodynia (principal); I10 Essential (primary) hypertension; F17.210 Nicotine dependence, cigarettes, uncomplicated; Z79.899 Other long term (current) drug therapy ==

== ENCOUNTER 2023-09-28 20:08 | Emergency (ER) | payer OTHER, SELFPAY ==
[2023-09-28] MEDS ORDERED: Ondansetron PF 4 MG/2 ML Vial ONE (21:10)
[2023-09-28] MEDS ORDERED: Morphine 4 MG/ML VIAL ONE (21:11)
[2023-09-28 21:45] LABS: ALT (SGPT) 12 U/L (8-55); AST (SGOT) 37 U/L (5-34); Alkaline Phosphatase 56 U/L (40-110); Anion Gap 12 mmol/L (10-20); BUN (Urea Nitrogen) 13 mg/dL (7.0-18.7); Bilirubin, Total 0.2 mg/dL (0.2-1.2); Calc. Creatinine Clearance 0 mL/min (70-130); Calcium 9.1 mg/dL (7.8-10.44); Carbon Dioxide 17 mmol/L (22-29); Chloride 108 mmol/L (98-107); Estimated GFR 120; Globulin 3.4 g/dL (2.4-3.5); Glucose 72 mg/dL (70-105); Lipase 49 U/L (8-78); Potassium 3.4 mmol/L (3.5-5.1); Protein, Total 7.4 g/dL (6.0-8.3); Sodium 134 mmol/L (136-145)
[2023-09-28] MEDS ORDERED: diphenhydrAMINE 50 MG/ML VIAL ONE (21:48)
[2023-09-28] MEDS ORDERED: Mag-Al 1200 mg/1200 mg/30 ML UDCUP ONE (21:48)
[2023-09-28 22:25] LABS: Bacteria/HPF 4+ HPF (None Seen); Bilirubin Negative (Negative); Blood, Urine Negative (Negative); CAUTI Indications for Culture Pelvic or flank pain; Clarity Turbid (Clear); Glucose, Urine (Dipstick) Normal (Negative); Ketone, Urine Negative (Negative); Leukocyte 500 Leu/uL (Negative); Mucous/LPF Rare LPF (<2+); Nitrite Negative (Negative); Protein, Urine (Dipstick) 50 mg/dL (Neg-Trace); RBC/HPF 0-3 HPF (0-3); Specific Gravity, Urine 1.025 (1.002-1.036); Squamous Epithelial 21-50 HPF (0-3); pH, Urine 7.5 (5.0-9.0)
[2023-09-28 22:26] LABS: Urine Culture Reflex Yes Yes
== END 2023-09-28 22:44 | disposition home or self-care (01) ==
LOC: ERS 20:08
DX: M54.6 Pain in thoracic spine (principal); I10 Essential (primary) hypertension
CPT/HCPCS: 36415; 71045; 80053; 81001; 83690; 87086; 93005; 96374; 96375; J1200; J2270; J2405